=== PATIENT | male | born 1995 | race Caucasian/White ===

== ENCOUNTER 2019-07-09 14:10 | Emergency (ER) | payer SELFPAY ==
[~2019-07-09] VITALS: Ht 165.1 cm; Wt 59.0 kg
[2019-07-09] MEDS ORDERED: NEOMY/BACITRA/POLYMYXIN B OINT UD PACKET TP ONE ×2 (14:28→14:30)
[2019-07-09] MEDS ORDERED: LIDOCAINE HCL 1% 20 ML VIAL ONE (14:29)
[2019-07-09] MEDS ORDERED: HYDROCODONE/APAP 5-325MG TABLET PO ONE (14:30)
[2019-07-09] MEDS ORDERED: TDAP DIPH,PERTUSS,TET VAC/PF 0.5 ML DISP.SYRIN IM ONE ×2 (14:30→14:33)
[2019-07-09] MEDS ORDERED: LIDOCAINE HCL 1% 20 ML VIAL TP ONE (14:30)
[2019-07-09] MEDS ORDERED: HYDROCODONE/APAP 5-325MG TABLET ONE (14:33)
--- NOTE | 2019-07-09 15:51 | NUR ---
Patient discharged to home in stable condition. Written and verbal after care instructions given. Patient verbalizes understanding of instructions. Stressed follow up or return to ER for worsening s/s.pt walks in steady gait. pt not driving
== END 2019-07-09 15:52 | disposition home or self-care (01) ==
LOC: ER 14:10
PROC: 0HQNXZZ Repair Left Foot Skin, External Approach (ICD-10-PCS; principal; 2019-07-09)
DX: S92.422B Displaced fracture of distal phalanx of left great toe, initial encounter for open fracture (principal); W30.89XA Contact with other specified agricultural machinery, initial encounter; Y93.H2 Activity, gardening and landscaping; Y92.89 Other specified places as the place of occurrence of the external cause
CPT/HCPCS: 12002; 73660; 90471; 90715; 99284; J3490; A4217; A4663